=== PATIENT | male | born 1985 | race Asian ===

== ENCOUNTER 2019-01-19 00:59 | Inpatient (IN) | payer BC ==
[~2019-01-19] VITALS: Ht 182.9 cm; Wt 94.9 kg
[2019-01-19 01:06] VITALS: Ht 182.9 cm; Wt 94.9 kg
[2019-01-19 02:08] LABS: PLATELET COUNT 168 x10^3mcL (130-400)
[2019-01-19 02:09] LABS: BASOPHIL % 0 % (0-2)
[2019-01-19 02:22] LABS: CALCIUM 9.6 mg/dL (8.5-10.1); CARBON DIOXIDE 27.1 mmol/L (21-32); CHLORIDE SERUM 103 mmol/L (98-107); CREATININE SERUM 0.9 mg/dL (0.7-1.3); GFR1 > 60 mL/min; GLUCOSE SERUM 124 mg/dL (74-106); POTASSIUM SERUM 3.7 mmol/L (3.5-5.1); SODIUM SERUM 138 mmol/L (136-145)
[2019-01-19 02:27] LABS: ALBUMIN 4.2 g/dL (3.4-5.0); ALKALINE PHOSPHATASE 86 U/L (46-116); ALT/SGPT 19 U/L (16-63); AST/SGOT 10 U/L (15-37); LIPASE 82 IU/L (73-393); TOTAL PROTEIN, SERUM 7.7 g/dL (6.4-8.2)
[2019-01-19 05:05] LABS: MAGNESIUM 1.7 mg/dL (1.8-2.4); PHOSPHOROUS 2.5 mg/dL (2.5-4.9)
[2019-01-19 05:07] LABS: microscopic required? NO
[2019-01-19 05:12] LABS: T3 TOTAL 1.41 ng/mL
[2019-01-19 05:13] LABS: FREE T4 1.05 ng/dL (0.76-1.46); FREE THYROXINE INDEX 2.2 ug/dL (1.4-4.5); T4(THYROXINE) 6.9 ug/dL (4.7-13.3)
[2019-01-19 05:24] LABS: urine erythrocyte NEGATIVE (NEGATIVE)
[2019-01-19 06:13] VITALS: BP 99/61
[2019-01-19 12:46] VITALS: BP 117/69
[2019-01-19 17:37] VITALS: BP 125/74
[2019-01-19 20:33] VITALS: BP 118/67
[2019-01-20 06:25] VITALS: BP 120/78
[2019-01-20 06:49] LABS: CALCIUM 8.9 mg/dL (8.5-10.1); CARBON DIOXIDE 25.4 mmol/L (21-32); CHLORIDE SERUM 106 mmol/L (98-107); CREATININE SERUM 0.7 mg/dL (0.7-1.3); GFR1 > 60 mL/min; GLUCOSE SERUM 106 mg/dL (74-106); MAGNESIUM 2.1 mg/dL (1.8-2.4); POTASSIUM SERUM 3.8 mmol/L (3.5-5.1); SODIUM SERUM 141 mmol/L (136-145)
[2019-01-20 07:01] LABS: BASOPHIL % 0.4 % (0-2); PLATELET COUNT 165 x10^3mcL (130-400)
[2019-01-20] MEDS ORDERED: FLA500 PO (09:27)
[2019-01-20] MEDS ORDERED: GOOD SENSE OMEP20 MG PO (09:27)
[2019-01-20] MEDS ORDERED: IBUPROFEN400 MG PO (09:38)
[2019-01-20] MEDS ORDERED: COL-RITE100 M2 PO (09:38)
[2019-01-20 09:44] VITALS: BP 112/78
[2019-01-20 11:18] VITALS: BP 112/78
== END 2019-01-20 16:49 | disposition home or self-care (01) | DRG 853 ==
LOC: ED 00:59 → MU 04:24
PROVIDERS: Emergency Medicine; Surgery; ADMIT General Practice
PROC: 0DTJ4ZZ Resection of Appendix, Percutaneous Endoscopic Approach (ICD-10-PCS; principal; 2019-01-19 09:45)
DX: A41.9 Sepsis, unspecified organism (principal); K35.32 Acute appendicitis with perforation, localized peritonitis, and gangrene, without abscess; E83.42 Hypomagnesemia; Z88.0 Allergy status to penicillin
CPT/HCPCS: 83880; 84439; 94150; J1170; J1956; J2270; J2405; J3010; J3490; J7030